=== PATIENT | female | born 1980 | race Caucasian/White ===

== ENCOUNTER 2018-10-24 16:48 | Emergency (ER) | payer OTHER ==
[2018-10-24 17:09] LABS: #Basophils 0.1 thou/uL (0.0-0.2); #Eosinphils 0.2 thou/uL (0.0-0.7); #Lymphocytes 4.5 thou/uL (1.20-3.40); #Monocytes 0.7 thou/uL (0.11-0.59); #Neutrophils 8.5 thou/uL (1.40-6.50); %Basophils 0.8 % (0.0-1.0); %Eosinophils 1.1 % (0.0-10.0); %Lymphocytes 31.9 % (21.0-51.0); %Monocytes 5.3 % (0.0-10.0); %Neutrophils 60.9 % (42.0-75.0); Hemoglobin 13.5 g/dL (12.0-16.0); Mean Corpuscular HGB CONC 34.6 g/dL (32.0-36.0); Mean Corpuscular Hemoglobin 30.6 pg (27.0-31.0); Mean Corpuscular Volume 88.4 fL (78.0-98.0); Mean Platelet Volume 6.4 fL (7.4-10.4); Platelet Count 369 thou/uL (130-400); RBC Distribution Width 11.2 % (11.5-14.5); Red Blood Cell (RBC) Count 4.43 mill/uL (4.20-5.40)
[2018-10-24 17:24] LABS: ALT (SGPT) 13 U/L (8-55); AST (SGOT) 14 U/L (5-34); Albumin 3.8 g/dL (3.5-5.0); Alkaline Phosphatase 37 U/L (40-150); Anion Gap 11 mmol/L (10-20); BUN (Urea Nitrogen) 9 mg/dL (7.0-18.7); Bilirubin, Total 0.4 mg/dL (0.2-1.2); Calc. Creatinine Clearance 0 mL/min (70-130); Calcium 8.9 mg/dL (7.8-10.44); Carbon Dioxide 23 mmol/L (22-29); Chloride 103 mmol/L (98-107); Estimated GFR-MDRD Greater than 90; Globulin 3.2 g/dL (2.4-3.5); Glucose 77 mg/dL (70-105); Potassium 3.4 mmol/L (3.5-5.1); Sodium 134 mmol/L (136-145)
[2018-10-24 19:16] LABS: Bilirubin Negative (Negative); Blood, Urine Negative (Negative); Clarity CLOUDY (Clear); Glucose, Urine (Dipstick) Negative (Negative); Leukocyte Moderate (Negative); Nitrite Negative (Negative); Protein, Urine (Dipstick) Negative (Neg-Trace); Urobilinogen 0.2 mg/dL (0.2-1.0)
[2018-10-24 19:20] LABS: Bacteria/HPF 3+ HPF (None Seen); Pathc Cast-AUWi Flag 11.04 (0-2.49); Squamous Epithelial 21-50 HPF (0-3)
[2018-10-24 19:37] LABS: Hyaline Casts/LPF 0-3 HYALINE CAST LPF (0-3 Hyaline); Other Casts/LPF None Seen LPF (0-3 Hyaline)
== END 2018-10-24 20:01 | disposition home or self-care (01) ==
LOC: ERS 16:48
DX: O23.41 Unspecified infection of urinary tract in pregnancy, first trimester (principal); O24.911 Unspecified diabetes mellitus in pregnancy, first trimester; O09.521 Supervision of elderly multigravida, first trimester
CPT/HCPCS: 36415; 80053; 81003; 81015; 85025; 99284

== ENCOUNTER 2019-05-05 15:44 | Inpatient (IN) | payer OTHER ==
[2019-05-05] MEDS ORDERED: PHENYLEPHRINE-NS 100 MCG/ML 10 ML SYRINGE ONE (16:29)
[2019-05-05] MEDS ORDERED: ePHEDrine 50 MG/ML VIAL ONE (16:29)
[2019-05-05] MEDS ORDERED: Ondansetron PF 4 MG/2 ML Vial ONE ×2 (16:29→20:13)
[2019-05-05] MEDS ORDERED: Ketorolac Tromethamine 30 MG/ML VIAL ONE (16:29)
[2019-05-05 16:37] VITALS: BMI 40.8
[2019-05-05 17:59] LABS: #Basophils 0.1 thou/uL (0.0-0.2); #Lymphocytes 3.4 thou/uL (1.20-3.40); #Monocytes 0.7 thou/uL (0.11-0.59); #Neutrophils 6.5 thou/uL (1.40-6.50); %Basophils 0.5 % (0.0-1.0); %Eosinophils 0.3 % (0.0-10.0); %Lymphocytes 31.5 % (21.0-51.0); %Monocytes 6.9 % (0.0-10.0); %Neutrophils 60.8 % (42.0-75.0); Hemoglobin 12.5 g/dL (12.0-16.0); Mean Corpuscular HGB CONC 33.5 g/dL (32.0-36.0); Mean Corpuscular Hemoglobin 28.8 pg (27.0-31.0); Mean Corpuscular Volume 85.9 fL (78.0-98.0); Mean Platelet Volume 7.3 fL (7.4-10.4); Platelet Count 258 thou/uL (130-400); RBC Distribution Width 11.9 % (11.5-14.5); Red Blood Cell (RBC) Count 4.34 mill/uL (4.20-5.40); White Blood Cell (WBC) Count 10.6 thou/uL (4.8-10.8)
[2019-05-05 18:21] LABS: ALT (SGPT) 10 U/L (8-55); AST (SGOT) 16 U/L (5-34); Albumin 2.8 g/dL (3.5-5.0); Alkaline Phosphatase 98 U/L (40-150); Anion Gap 13 mmol/L (10-20); BUN (Urea Nitrogen) 9 mg/dL (7.0-18.7); Bilirubin, Total 0.4 mg/dL (0.2-1.2); Calc. Creatinine Clearance 184 mL/min (70-130); Calcium 8.6 mg/dL (7.8-10.44); Carbon Dioxide 22 mmol/L (22-29); Chloride 106 mmol/L (98-107); Estimated GFR-MDRD Greater than 90; Globulin 2.8 g/dL (2.4-3.5); Glucose 63 mg/dL (70-105); Potassium 4.6 mmol/L (3.5-5.1); Protein, Total 5.6 g/dL (6.0-8.3); Sodium 136 mmol/L (136-145)
[2019-05-05] MEDS ORDERED: MORPHINE 5 MG/10 ML PF VIAL ONE (20:12)
[2019-05-05] MEDS ORDERED: Oxytocin 10 UNITS/ML VIAL ONE ×2 (20:13→21:10)
[2019-05-05] MEDS ORDERED: CEFAZOLIN 3 GM in Sodium Chloride 0.9% 100 ML IVPB SCH (20:15)
[2019-05-05 20:18] LABS: Syphilis Antibody Nonreactive (Nonreactive); Syphilis Antibody Index 0.03 S/CO (<1.00 Non-Reactive)
[2019-05-05 20:19] LABS: HBSAg Index 0.31 S/CO (0-0.99); Hep B Surf Ag Non-Reactive S/CO (NonReactive)
[2019-05-05] MEDS ORDERED: Naloxone HCl 0.4 mg/ml Vial IVP PRN ×2 (21:33)
[2019-05-05] MEDS ORDERED: Naloxone HCl 0.4 mg/ml Vial IV PRN (21:33)
[2019-05-05] MEDS ORDERED: Ondansetron PF 4 MG/2 ML Vial IVP PRN ×2 (21:33→23:38)
[2019-05-05] MEDS ORDERED: diphenhydrAMINE 50 MG/ML VIAL IVP PRN (21:33)
[2019-05-05] MEDS ORDERED: Ondansetron HCl/PF 4 MG/2 ML Vial IVP PRN (21:33)
[2019-05-05] MEDS ORDERED: L&D-Morphine 4 MG/ML VIAL SLOW IVP PRN (21:33)
[2019-05-05] MEDS ORDERED: HYDROmorphone 2 MG/ML VIAL SLOW IVP PRN (21:33)
[2019-05-05] MEDS ORDERED: Promethazine HCl 25 MG/ML VIAL IM PRN (21:33)
[2019-05-05] MEDS ORDERED: Meperidine HCl/PF 25 MG/ML VIAL SLOW IVP PRN (21:33)
[2019-05-05] MEDS ORDERED: Promethazine HCl 25 MG SUPP PR PRN (21:33)
[2019-05-05] MEDS ORDERED: Communication Order-Pharmacy FS SCH (21:45)
[2019-05-05] MEDS ORDERED: Dextrose 5% in Water 1,000 ML IV PRN (23:38)
[2019-05-05] MEDS ORDERED: HYDROcodone/Acetaminophen 5/325 mg Tablet PO PRN (23:38)
[2019-05-05] MEDS ORDERED: Bisacodyl 10 MG SUPP PR PRN (23:38)
[2019-05-05] MEDS ORDERED: Dextrose 50% Abboject 50 ML SYRINGE SLOW IVP PRN (23:38)
[2019-05-05] MEDS ORDERED: NS / Oxytocin 40 units/1000ml 1,000 ML IV SCH (23:38)
[2019-05-05] MEDS ORDERED: Lanolin Ointment 7 GM TUBE TOP PRN (23:38)
[2019-05-05] MEDS ORDERED: hydrALAZINE 20 MG/ML VIAL SLOW IVP PRN (23:38)
[2019-05-05] MEDS ORDERED: Insulin Regular 300 UNITS/3 ML VIAL SC PRN (23:38)
[2019-05-06] MEDS ORDERED: Ketorolac Tromethamine 30 MG/ML VIAL IVP PRN (05:00)
[2019-05-06] MEDS: Ibuprofen 800 MG TAB PO SCH ×3 (06:16→21:20)
[2019-05-06 06:35] LABS: Hemoglobin 11.4 g/dL (12.0-16.0); Mean Corpuscular HGB CONC 32.6 g/dL (32.0-36.0); Mean Corpuscular Hemoglobin 27.9 pg (27.0-31.0); Mean Corpuscular Volume 85.7 fL (78.0-98.0); Mean Platelet Volume 7.3 fL (7.4-10.4); Platelet Count 214 thou/uL (130-400); RBC Distribution Width 11.8 % (11.5-14.5); Red Blood Cell (RBC) Count 4.08 mill/uL (4.20-5.40); White Blood Cell (WBC) Count 13.4 thou/uL (4.8-10.8)
[2019-05-06] MEDS: Docusate Calcium (SURFAK) 240 MG CAP PO SCH ×2 (08:58→21:20)
[2019-05-06] MEDS: glyBURIDE 5 MG TAB PO SCH (08:58)
[2019-05-06] MEDS: metFORMIN 500 MG TAB PO SCH ×2 (08:58→18:00)
[2019-05-06] MEDS: Ferrous Sulfate 325 MG TAB PO SCH ×2 (08:58→22:11)
[2019-05-06] MEDS ORDERED: Measles/Mumps/Rubella 10 MCG/0.5 ML VIAL SC ONE (09:00)
[2019-05-06] MEDS ORDERED: Adacel (T-DAP) 0.5 ML SYRINGE IM ONE (09:00)
--- NOTE | 2019-05-06 09:20 | OP ---
DATE OF PROCEDURE: 05/05/2019 CONTINUATION: PREOPERATIVE DIAGNOSES: 1. A 38-year-old, G5, P0-1-3-2 at 37 weeks. 2. Obesity. 3. Diabetes, controlled with metformin, glyburide, and Lantus. 4. -induced hypertension. 5. Previous section, declined trial of labor. 6. Polyhydramnios and suspected macrosomic , obesity. POSTOPERATIVE DIAGNOSIS: Status post repeat low-transverse section. PROCEDURES PERFORMED: Primary low-transverse section and placement of KRISTOPHER prophylactic wound dressing. ASSISTANTS: La Del Castillo, [employer] and Bryan Rojas MD. ANESTHESIA: Spinal per Dr. Jay. COMPLICATIONS: None. ESTIMATED BLOOD LOSS: 600 mL. OPERATIVE FINDINGS: 1. Central obesity. 2. Low-transverse hysterotomy without extension. 3. Adhesions of the bladder to the uterine serosa. 4. Normal-appearing uterus, tubes, and ovaries bilaterally. 5. Macrosomic-appearing female infant, weight 9 pounds 9 ounces. Apgars 2, 7, and 9 to the NICU for transition. 6. Normal-appearing placenta. 7. Clear amniotic fluid. DESCRIPTION OF PROCEDURE: The patient was taken back to the OR with IV fluids running. When she was in the OR, spinal anesthesia was obtained. The patient was then placed in dorsal supine position with a left lateral tilt. A Scott catheter was placed using sterile technique. A 3 g of Ancef was administered for prophylactic antibiotic. Surgeons were gowned and gloved. The abdomen was prepped and draped in normal fashion for section. A Pfannenstiel skin incision was made with a scalpel. Skin incision was carried down through the subcutaneous tissue to the fascia. Once the fascia was reached, it was incised in the midline and extended superolaterally using sharp curved Guerrero scissors. Nic clamps were placed at the superior border of the fascia, which was sharply and bluntly dissected off the rectus abdominis muscles in both caudad and cephalad directions allowing adequate space for delivery of the . The rectus muscles were then in the midline and the peritoneum was bluntly entered and stretched laterally. Adhesions of the bladder were noted to the uterine serosa. These adhesions were taken down with fine dissection using Metzenbaum scissors and a bladder flap was created and the bladder was dissected away from the planned hysterotomy site. Hysterotomy was made with a scalpel. Clear fluid was immediately and noted. The infant was delivered through the hysterotomy without difficulty. The nose and mouth were suctioned. The cord was doubly clamped, cut. The was handed off to special care nurse in attendance. Cord blood was collected. The placenta was delivered and sent for pathologic review. Uterus was exteriorized, massaged to firm and cleared of clot and debris with a clean and dry sponge. The hysterotomy was inspected and no extensions were noted. The hysterotomy was then closed with Monocryl suture in a running locked fashion. A double-layer closure was performed with hemostasis of the hysterotomy and surgical sites noted. After closure of the hysterotomy, the hysterotomy and paracolic gutters were copiously irrigated and suctioned dry. The hysterotomy was inspected again with no areas of bleeding noted. The peritoneum and rectus muscles were inspected with no areas of bleeding noted. The rectus fascia was then reapproximated from corner to corner and tied separately in the midline. The subcutaneous tissue was then copiously irrigated and dried. Any small areas of bleeding were controlled with Bovie cauterization. Subcutaneous tissue was reapproximated in 2 layers using plain gut suture. The skin was reapproximated with sterile melina and a KRISTOPHER prophylactic wound dressing was applied using sterile technique. The uterus was noted to be firm at the end of the section. The patient tolerated the procedure well. The patient will be transferred to the recovery room with plans to check her blood sugars every 4 hours and sliding scale insulin has been ordered. We will resume her home medications once she is tolerating a regular diet. Job ID: [id number] [facility]
--- NOTE | 2019-05-06 10:09 | PDOC.PP ---
Post Progress Note Post Day #: 1 Subjective: minimal discomfort, tolerating diet, no concerns, baby doing well in NICU PO intake tolerated: yes Flatus: yes Ambulation: yes Vital Signs (12 hours) Temp Pulse Resp BP Pulse Ox 05/06/19 07:51 98.1 F 78 20 129/68 97 05/06/19 05:30 98.2 F 82 16 139/74 05/06/19 00:10 98.9 F 82 16 158/80 H 98 Weight Weight 223 lb - Physical Examination General: NAD Respiratory: non-labored breathing Abdominal: no distention Skin: CS incision dry & intact (KRISTOPHER dressing intact), no rash Neurological: no gross focal deficits Psychiatric: A&Ox3, normal affect Result Diagrams: 05/06/19 06:08 05/05/19 17:44 Additional Labs: Post Labs Blood Type A POSITIVE 05/05/19 19:20 Hep Bs Antigen Non-Reactive S/CO (NonReactive) 05/05/19 19:20 (1) Preeclampsia Code(s): O14.90 - UNSPECIFIED PRE-ECLAMPSIA, UNSPECIFIED TRIMESTER Status: Acute (2) 37 weeks gestation of Code(s): Z3A.37 - 37 WEEKS GESTATION OF Status: Acute (3) Previous delivery affecting Code(s): O34.219 - MATERNAL CARE FOR UNSP TYPE SCAR FROM PREVIOUS DEL Status: Acute (4) Modified White class B pregestational diabetes mellitus Code(s): O24.319 - UNSP PRE-EXISTING DIABETES IN , UNSP TRIMESTER Status: Acute (5) Obesity Code(s): E66.9 - OBESITY, UNSPECIFIED Status: Acute - Assessment/Plan POD1 sp RCS @ 37 weeks PIH and Class B diabetes, doing very well, no insulin required since delivery. Will continue to monitor closely, restarting oral meds today. Baby in NICU but transitioning well.
[2019-05-06] MEDS: Simethicone Chewable 80 MG TAB PO PRN (21:20)
[2019-05-06] MEDS: HYDROcodone/Acetaminophen 5/325 mg Tablet PO PRN (21:24)
[2019-05-07] MEDS: HYDROcodone/Acetaminophen 5/325 mg Tablet PO PRN ×2 (04:23→22:35)
[2019-05-07] MEDS: Ibuprofen 800 MG TAB PO SCH ×3 (05:16→22:26)
--- NOTE | 2019-05-07 08:13 | PDOC.PP ---
Post Progress Note Post Day #: 2 Subjective: doing well, minimal discomfort, working on latch, FSBS well controlled PO intake tolerated: yes Flatus: yes Ambulation: yes Vital Signs (12 hours) Temp Pulse Resp BP Pulse Ox 05/07/19 07:59 98.3 F 82 14 137/67 97 05/07/19 04:20 98.3 F 87 16 128/73 05/07/19 00:30 81 16 133/70 05/06/19 20:20 97.9 F 82 16 142/69 H 100 Weight Weight 223 lb - Physical Examination General: NAD Respiratory: non-labored breathing Abdominal: no distention Extremities: negative homans (B) Skin: CS incision dry & intact, no rash Neurological: no gross focal deficits Psychiatric: A&Ox3, normal affect Result Diagrams: 05/06/19 06:08 05/05/19 17:44 Additional Labs: Post Labs Blood Type A POSITIVE 05/05/19 19:20 Hep Bs Antigen Non-Reactive S/CO (NonReactive) 05/05/19 19:20 (1) Preeclampsia Code(s): O14.90 - UNSPECIFIED PRE-ECLAMPSIA, UNSPECIFIED TRIMESTER Status: Acute (2) 37 weeks gestation of Code(s): Z3A.37 - 37 WEEKS GESTATION OF Status: Acute (3) Previous delivery affecting Code(s): O34.219 - MATERNAL CARE FOR UNSP TYPE SCAR FROM PREVIOUS DEL Status: Acute (4) Modified White class B pregestational diabetes mellitus Code(s): O24.319 - UNSP PRE-EXISTING DIABETES IN , UNSP TRIMESTER Status: Acute (5) Obesity Code(s): E66.9 - OBESITY, UNSPECIFIED Status: Acute - Assessment/Plan POD2 doing well sp RCS @ 37 weeks PIH, class B DM. FSBS well controlled w metformin BID and glyburide qday right now, no insulin required. Will stop q4hr fsbs. Discussed continuing this regimen at home and restart lantus if increase BS noted. Likely DC tomorrow.
[2019-05-07] MEDS: Docusate Calcium (SURFAK) 240 MG CAP PO SCH ×2 (09:29→22:26)
[2019-05-07] MEDS: glyBURIDE 5 MG TAB PO SCH (09:29)
[2019-05-07] MEDS: metFORMIN 500 MG TAB PO SCH ×2 (09:29→18:33)
[2019-05-07] MEDS: Ferrous Sulfate 325 MG TAB PO SCH ×2 (10:21→22:27)
[2019-05-07] MEDS ORDERED: Measles/Mumps/Rubella 10 MCG/0.5 ML VIAL SC ONE (11:30)
[2019-05-07] MEDS: Simethicone Chewable 80 MG TAB PO PRN (22:36)
[2019-05-08] MEDS: Ibuprofen 800 MG TAB PO SCH (06:39)
[2019-05-08] MEDS: Docusate Calcium (SURFAK) 240 MG CAP PO SCH (08:07)
[2019-05-08] MEDS: metFORMIN 500 MG TAB PO SCH (08:07)
[2019-05-08] MEDS: HYDROcodone/Acetaminophen 5/325 mg Tablet PO PRN (08:08)
[2019-05-08] MEDS: glyBURIDE 5 MG TAB PO SCH (08:08)
[2019-05-08] MEDS: Ferrous Sulfate 325 MG TAB PO SCH (08:11)
[2019-05-08 08:22] VITALS: BP 139/67; TEMP 98.5
--- NOTE | 2019-05-08 11:08 | DIS ---
DATE OF ADMISSION: 05/05/2019 DATE OF DISCHARGE: 05/08/2019 ADMITTING DIAGNOSES: 1. Intrauterine at 37 weeks. 2. Diabetes. 3. Polyhydramnios. 4. Previous . 5. -induced hypertension. DISCHARGE DIAGNOSES: 1. Intrauterine at 37 weeks. 2. Diabetes. 3. Polyhydramnios. 4. Previous . 5. -induced hypertension. PROCEDURE PERFORMED: Repeat lower transverse section. CONSULTATIONS: None. HOSPITAL COURSE: The patient is a 38-year-old G5, P2 female, who presented for a scheduled repeat at 37 weeks due to hypertension and . For complete details of her operation, please refer to the operative note. Her postoperative course has been uncomplicated, and she is now postop day 3. The patient reports she is tolerating p.o., voiding on her own, having decreased lochia and good pain control. Of note, the baby is under bili lights today. PHYSICAL EXAMINATION: VITAL SIGNS: This morning, blood pressure of 127/62, temperature of 98.2, pulse of 87, respiratory rate of 17. GENERAL: She appears to be in no acute distress. She is alert, oriented, cooperative, and pleasant to interact with. HEAD: Normocephalic and atraumatic. LUNGS: Clear to auscultation bilaterally. ABDOMEN: Obese and difficult to assess fundus. Incision is clean, dry, and intact with the incision vacuum kit. EXTREMITIES: Nontender. LABORATORY DATA: Her post delivery hemoglobin is 11.4, hematocrit 35, platelets 214,000. Blood sugars have ranged from 64 to 126. The patient will be discharged to home today with instructions to follow up with her primary OB, Dr. Lorenzana in 2 weeks for an incision check. She has been given instructions to seek medical attention sooner if she experiences fever, increasing pain or bleeding, incision drainage or redness. The patient will be discharged home with ibuprofen and tramadol as needed for pain. She has instructions to limit her lifting to 15 pounds for the next 4 to 6 weeks. No driving for 2 weeks. Job ID: [id number]
== END 2019-05-08 13:06 | disposition home or self-care (01) | DRG 786 ==
LOC: L&D/OP 15:44 → L&D 18:33 → 3SW 05-06 00:05
PROVIDERS: ADMIT Obstetrics & Gynecology; ATTEND Obstetrics & Gynecology
PROC: 10D00Z1 Extraction of Products of Conception, Low, Open Approach (ICD-10-PCS; principal; 2019-05-05)
DX: O34.211 Maternal care for low transverse scar from previous cesarean delivery (principal); O24.32 Unspecified pre-existing diabetes mellitus in childbirth; O99.214 Obesity complicating childbirth; E66.9 Obesity, unspecified; O14.04 Mild to moderate pre-eclampsia, complicating childbirth; E11.9 Type 2 diabetes mellitus without complications; O40.3XX0 Polyhydramnios, third trimester, not applicable or unspecified; Z37.0 Single live birth; Z79.84 Long term (current) use of oral hypoglycemic drugs; Z3A.37 37 weeks gestation of pregnancy
CPT/HCPCS: 36415; 36416; 51702; 80053; 85025; 85027; 86780; 86850; 86900; 86901; 87340; 88307; 99285; J0131; J0690; J1885; J2274; J2405; J2590; J3490